=== PATIENT | male | born 1940 | race Caucasian/White ===

== ENCOUNTER 2019-08-12 23:32 | Emergency (ER) | payer MEDICARE, OTHER ==
[~2019-08-12] VITALS: Ht 175.3 cm; Wt 100.3 kg
[2019-08-13 00:09] LABS: BASO % 0.4 % (0.0-1.0); EOS # 0.1 10^3/uL (0.0-0.5); EOS % 1.2 % (0.0-3.0); HEMATOCRIT 44.4 % (42.0-52.0); HEMOGLOBIN 14.2 g/dl (13.5-17.5); LYMPH # 3.1 10^3/uL (1.5-5.0); LYMPH % 37.6 % (24.0-44.0); MEAN CORPUSCULAR HEMOGLOBIN 30.7 pg (27.0-33.0); MEAN CORPUSCULAR VOLUME 95.9 fl (80.0-96.0); MONO # 0.6 10^3/uL (0.0-0.8); MONO % 7.8 % (0.0-5.0); NEUTROPHILS # 4.3 10^3/uL (1.5-8.5); NEUTROPHILS % 52.8 % (36.0-66.0); PLATELET COUNT, AUTOMATED 196 10^3/uL (150-450); RED BLOOD COUNT 4.63 10^6/uL (4.30-6.10); WHITE BLOOD COUNT 8.2 10^3/uL (4.0-10.0)
[2019-08-13 00:19] LABS: INR 0.98; PROTHROMBIN TIME 12.7 SECONDS (11.8-14.0)
[2019-08-13 00:38] LABS: ALBUMIN 3.7 GM/DL (3.2-5.2); BILIRUBIN,DIRECT 0.2 MG/DL (0.0-0.2); BILIRUBIN,TOTAL 0.5 MG/DL (0.2-1.0); CALCIUM LEVEL 8.8 MG/DL (8.8-10.2); CK-MB VALUE MASS 3.9 NG/ML (<3.6); CREATININE FOR GFR 1.66 MG/DL (0.70-1.30); FREE T4 1.04 NG/DL (0.76-1.46); GLOMERULAR FILTRATION RATE 42.8 (>42); MAGNESIUM LEVEL 1.4 MG/DL (1.8-2.4); MB/CK RELATIVE INDEX 2.34 (< OR =4); PHOSPHORUS LEVEL 3.3 MG/DL (2.5-4.9); POTASSIUM SERUM 4.3 MEQ/L (3.5-5.1); THYROID STIMULATING HORMONE 4.48 uIU/ML (0.358-3.740); TOTAL PROTEIN 7.2 GM/DL (6.4-8.2); TROPONIN I 0.08 NG/ML (< 0.10)
[2019-08-13] MEDS ORDERED: VITA500C24 PO (02:07)
[2019-08-13] MEDS ORDERED: RANI15TA PO (02:07)
[2019-08-13] MEDS ORDERED: ATOR40TA75 PO (02:07)
[2019-08-13] MEDS ORDERED: TELM1TAB3 PO (02:07)
[2019-08-13] MEDS ORDERED: LANTINJ4 SC ×2 (02:07)
[2019-08-13] MEDS ORDERED: MULTCAP PO (02:11)
[2019-08-13] MEDS ORDERED: FISH1000 PO (02:11)
[2019-08-13] MEDS ORDERED: ASPI81TA85 PO (02:11)
[2019-08-13] MEDS ORDERED: INSU100V3 SQ ×3 (02:11)
[2019-08-13] MEDS ORDERED: ALLO100T PO (02:13)
[2019-08-13] MEDS ORDERED: METF-838 PO (02:13)
[2019-08-13] MEDS ORDERED: VITA500T40 PO (02:13)
--- NOTE | 2019-08-13 03:00 | REP ---
Clinical: Chest pain . Comparison: None . Findings: The mediastinum and cardiac silhouette are stable and within normal limits for portable technique. The lung abbott are clear without acute consolidation, effusion, or pneumothorax. Skeletal structures are intact. Impression: No acute cardiopulmonary process appreciated. Electronically Signed by Johan Messina MD 08/13/2019 02:51 A
--- NOTE | 2019-08-13 08:06 | ECGEPIP ---
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
--- NOTE | 2019-08-13 08:14 | ECGEPIP ---
[facility] - ED Test Date: 2019-08-13 Pat Name: KRISTY RABAGO Department: Room: - Gender: Male Beverage Host: BENEDICT : 1940 Requested By: ALEJANDRO Silva Order Number: [id number] Reading MD: Anshu Kitchen Measurements Intervals [place] Rate: 60 P: 31 WI: 215 QRS: -31 QRSD: 154 T: 111 QT: 438 QTc: 441 Interpretive Statements SINUS RHYTHM WITH FIRST DEGREE AV BLOCK LEFT BUNDLE BRANCH BLOCK SIMILAR TO 08/12/19 Electronically Signed on 08-13-2019 8:13:52 EDT by Anshu Kitchen
[2019-08-13 08:25] LABS: CK-MB VALUE MASS 4.8 NG/ML (<3.6); MB/CK RELATIVE INDEX 3.36 (< OR =4); TROPONIN I 0.78 NG/ML (< 0.10)
[2019-08-13] MEDS ORDERED: HEPARIN DRIP 25,000 UNITS in IV 1 EA IV SCH (08:38)
[2019-08-13] MEDS ORDERED: ASPIRIN 81 MG CHEW TABLET PO ONE (08:45)
[2019-08-13] MEDS ORDERED: HEPARIN SOD (PORCINE) 5000UNITS/ML VIAL (J1644 PER 1000UNITS) IV ONE (08:45)
[2019-08-13] MEDS ORDERED: CLOPIDOGREL 300 MG TAB (PLAVIX) PO ONE (08:45)
[2019-08-13 10:15] VITALS: BP 147/69
== END 2019-08-13 10:35 | disposition short-term general hospital (02) ==
LOC: M ED 23:32 → EDBD 23:32 → M ED 08-13 10:35
DX: I21.4 Non-ST elevation (NSTEMI) myocardial infarction (principal); I47.1 Supraventricular tachycardia; I44.0 Atrioventricular block, first degree; I44.7 Left bundle-branch block, unspecified; E11.9 Type 2 diabetes mellitus without complications; I10 Essential (primary) hypertension; N18.9 Chronic kidney disease, unspecified; E78.5 Hyperlipidemia, unspecified; Z79.899 Other long term (current) drug therapy; Z79.82 Long term (current) use of aspirin; Z79.4 Long term (current) use of insulin; Z88.5 Allergy status to narcotic agent; Z88.8 Allergy status to other drugs, medicaments and biological substances
CPT/HCPCS: 36415; 71045; 80047; 80048; 80076; 82550; 82553; 83690; 83735; 84100; 84439; 84443; 84484; 85025; 85610; 93005; 93041; 94760; 96365; 96366; 99291; J1644; U0002

== ENCOUNTER → 2020-11-03 | Outpatient (REF) | payer OTHER ==
[~2020-11-03] MED LIST: ALLO100T PO; ASPI81TA86 PO; ATOR40TA75 PO; FISH1000 PO; INSU100V3 SQ; LANTINJ4 SC; METF-838 PO; MULTCAP PO; RANI15TA PO; TELM1TAB PO; VITA500C24 PO; VITA500T40 PO
[2020-11-03 16:36] LABS: CALCIUM LEVEL 9.3 MG/DL (8.8-10.2); CREATININE FOR GFR 1.63 MG/DL (0.70-1.30); GLOMERULAR FILTRATION RATE 43.6 (>35); POTASSIUM SERUM 5.1 MEQ/L (3.5-5.1)
== END ==
LOC: M SFHCCAPE 07:26
PROVIDERS: ATTEND Nurse Practitioner Women's Health
DX: N28.9 Disorder of kidney and ureter, unspecified (principal)

== ENCOUNTER → 2020-11-19 | Outpatient (CLI) | payer OTHER ==
--- NOTE | 2020-11-20 06:38 | REP ---
INDICATION: RENAL LESION COMPARISON: None TECHNIQUE: Real time cole scale ultrasound examination using curved array transducer. FINDINGS: Right kidney measures 11.8 x 5.3 x 4.7 cm without hydronephrosis and includes subcentimeter midpole cyst with layering milk of calcium and 4 mm nonobstructing calculus. Left kidney measures 12.5 x 4.4 x 4.8 cm with 7 mm upper pole cyst and 1.3 cm solid midpole mass. Bladder is unremarkable. Prostate measures 3.4 x 2.9 x 2.8 cm. IMPRESSION: 1. 1.3 cm suspected mass in the left kidney. No prior examinations are available for comparison. Consider pre and postcontrast CT of the abdomen for further investigation. 2. Subcentimeter cysts and small right intrarenal calculus. <Electronically signed by Johan Messina > 11/20/20 0634
== END ==
LOC: M RAD 13:54
PROVIDERS: ATTEND Nurse Practitioner Women's Health
DX: N28.9 Disorder of kidney and ureter, unspecified (principal)

== ENCOUNTER 2022-08-02 13:55 | Emergency (ER) | payer OTHER, MEDICARE ==
[~2022-08-02] VITALS: Ht 175.3 cm; Wt 100.2 kg
[2022-08-02 17:08] LABS: VENOUS BASE EXCESS 0.4 (-2.0-2.0); VENOUS HCO3 27.3 MMOL/L (23.0-27.0); VENOUS O2 SATURATION 45.7 % (60.0-80.0); VENOUS PARTIAL PRESSURE CO2 53.1 mmHg (38.0-50.0); VENOUS PARTIAL PRESSURE O2 27.3 mmHg (30.0-50.0); VENOUS PH 7.329 UNITS (7.330-7.430); VENOUS STANDARD HCO3 23.7 MMOL/L; VENOUS TOTAL CO2 28.9 MMOL/L (24.0-28.0)
[2022-08-02 17:14] LABS: BASO % 0.6 % (0.0-1.0); EOS # 0.1 10^3/uL (0.0-0.5); EOS % 1.8 % (0.0-3.0); HEMATOCRIT 40.5 % (42.0-52.0); HEMOGLOBIN 13.3 g/dl (13.5-17.5); LYMPH # 2.7 10^3/uL (1.5-5.0); MEAN CORPUSCULAR HEMOGLOBIN 32.8 pg (27.0-33.0); MEAN CORPUSCULAR HGB CONC 32.8 g/dl (32.0-36.5); MONO # 0.5 10^3/uL (0.0-0.8); MONO % 7.3 % (2.0-8.0); NEUTROPHILS # 3.8 10^3/uL (1.5-8.5); PLATELET COUNT, AUTOMATED 171 10^3/uL (150-450); RED BLOOD COUNT 4.05 10^6/uL (4.30-6.10); WHITE BLOOD COUNT 7.2 10^3/uL (4.0-10.0)
[2022-08-02 17:27] LABS: INR 0.94; PROTHROMBIN TIME 12.8 SECONDS (12.5-14.5)
[2022-08-02 17:28] LABS: PARTIAL THROMBOPLASTIN TIME 28.8 SECONDS (24.8-34.2)
[2022-08-02 17:40] LABS: LIPASE 31 U/L (12-53)
[2022-08-02 17:42] LABS: ALBUMIN 3.7 G/DL (3.2-5.2); ALKALINE PHOSPHATASE 83 U/L (46-116); ALT/SGPT 23 U/L (7.0-40); AST/SGOT 29 U/L (<34); BILIRUBIN,DIRECT 0.3 MG/DL (<0.4); BILIRUBIN,TOTAL 0.7 MG/DL (0.3-1.2); BLOOD UREA NITROGEN 29 MG/DL (9-23); CALCIUM LEVEL 7.6 MG/DL (8.3-10.6); CARBON DIOXIDE LEVEL 28 MMOL/L (20-31); CHLORIDE LEVEL 108 MMOL/L (98-107); CK-MB VALUE MASS 6.1 NG/ML (<3.6); CREATININE FOR GFR 1.17 MG/DL (0.70-1.30); GLOMERULAR FILTRATION RATE > 60.0 (>35); GLUCOSE, FASTING 141 MG/DL (74-106); POTASSIUM SERUM 4.1 MMOL/L (3.5-5.1); SODIUM LEVEL 143 MMOL/L (136-145); TOTAL PROTEIN 6.6 G/DL (5.7-8.2)
[2022-08-02 17:45] LABS: FREE T4 0.85 NG/DL (0.89-1.76)
[2022-08-02 17:46] LABS: THYROID STIMULATING HORMONE 2.666 uIU/ML (0.55-4.78)
[2022-08-02 17:54] LABS: CPK CREATINE PHOSPHOKINASE 277 U/L (46-171)
[2022-08-02] MEDS ORDERED: MICA80TA2 PO (18:12)
[2022-08-02] MEDS ORDERED: ISOVUE-370 76% 100ML VIAL As Ordered ONE (18:23)
[2022-08-02 18:44] LABS: CK-MB VALUE MASS 3.8 NG/ML (<3.6)
[2022-08-02 18:45] LABS: MB/CK RELATIVE INDEX 1.49 (< OR =4)
[2022-08-02] MEDS ORDERED: METOPROLOL TART 25 MG TABLET PO ONE (19:05)
[2022-08-02] MEDS ORDERED: hydrALAZINE 20MG/ML 1ML VIAL IV ONE (19:45)
[2022-08-02 19:59] VITALS: BP 198/96
[2022-08-02] MEDS ORDERED: TENECTEPLASE 50 MG KIT (TNKase) IVP ONE (21:05)
[2022-08-02] MEDS ORDERED: niCARdipine IV 40 MG in IV 1 EA IV SCH (21:05)
[2022-08-02 21:26] LABS: CK-MB VALUE MASS 3.4 NG/ML (<3.6); MB/CK RELATIVE INDEX 1.06 (< OR =4)
[2022-08-02 21:28] LABS: RSV AMPLIFICATION NEGATIVE (NEGATIVE)
[2022-08-02 21:57] VITALS: BP 153/70
[2022-08-02 22:00] VITALS: BP 162/72
[2022-08-02] MEDS ORDERED: SODIUM CHLORIDE 0.9% INJ 10 ML SYR IV ONE ×2 (22:00)
== END 2022-08-02 22:10 | disposition short-term general hospital (02) ==
LOC: M ED 13:55
DX: I63.9 Cerebral infarction, unspecified (principal); I16.0 Hypertensive urgency; M54.50 Low back pain, unspecified; R00.1 Bradycardia, unspecified; I44.0 Atrioventricular block, first degree; I44.4 Left anterior fascicular block; I44.7 Left bundle-branch block, unspecified; I10 Essential (primary) hypertension; E11.9 Type 2 diabetes mellitus without complications; K21.9 Gastro-esophageal reflux disease without esophagitis; Z88.5 Allergy status to narcotic agent; Z79.82 Long term (current) use of aspirin; Z79.02 Long term (current) use of antithrombotics/antiplatelets; Z79.4 Long term (current) use of insulin; Z79.899 Other long term (current) drug therapy
CPT/HCPCS: 70450; 71045; 71275; 72072; 80048; 80076; 82550; 82553; 82803; 83690; 84439; 84443; 84484; 85025; 85610; 85730; 87631; 93005; 93041; 94760; 96365; 96375; 99291; 99292; J0360; J3101; Q9967

== ENCOUNTER → 2022-10-28 | Outpatient (CLI) | payer OTHER, MEDICARE ==
[~2022-10-28] MED LIST changes: +MICA80TA2 PO
== END ==
LOC: M SLEEP 20:00
PROVIDERS: ATTEND Nurse Practitioner Family
DX: G47.33 Obstructive sleep apnea (adult) (pediatric) (principal)